=== PATIENT | male | born 1945 | race American Indian/Alaskan Native ===

== ENCOUNTER 2017-09-29 18:24 | Emergency (ER) | payer MEDICARE ==
[2017-09-29] MEDS ORDERED: Propofol 10 mg/ml Inj (20 ML) IV STA (20:30)
[2017-09-29] MEDS ORDERED: Propofol 10 mg/ml Inj (20 ML) ONE (20:41)
[2017-09-29] MEDS ORDERED: Morphine 4 MG/ML VIAL ONE (20:43)
[2017-09-29 20:54] VITALS: TEMP 98
[2017-09-29 21:16] VITALS: RESP 18
--- NOTE | 2017-09-29 21:55 | C.PDOC ---
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 Patient states he tripped and fell while on his way to work. He states he landed onto his right shoulder and "twisted the left knee." Patient denies LOC, numbness/weakness, or any other injuries at this time. ( Maria Dolores Florian) <Alejandro Aguirre E - Last Filed: 09/29/17 23:59> History Per: Patient History/Exam Limitations: no limitations Onset/Duration Of Symptoms: Hrs (1) Current Symptoms Are (Timing): Still Present Quality: "Pain" Additional History Per: Patient <Maria Dolores Florian - Last Filed: 10/02/17 21:15> Time Seen by Provider: 09/29/17 18:57 Chief Complaint (Nursing): Upper Extremity Problem/Injury Past Medical History Reviewed: Historical Data, Nursing Documentation, Vital Signs - Medical History PMH: No Chronic Diseases Surgical History: No Surg Hx Family History: States: Unknown Family Hx - Social History Hx Alcohol Use: No Hx Substance Use: No - Immunization History Hx Tetanus Toxoid Vaccination: No Hx Influenza Vaccination: No Hx Pneumococcal Vaccination: No <Maria Dolores Florian - Last Filed: 10/02/17 21:15> Vital Signs: Last Vital Signs Temp 98 F 09/29/17 21:00 Pulse 75 09/29/17 22:28 Resp 18 09/29/17 22:28 BP 124/71 09/29/17 22:28 Pulse Ox 98 09/29/17 22:28 Review Of Systems Musculoskeletal: Positive for: Shoulder Pain (right), Other (twisted left knee ) Neurological: Negative for: Weakness, Numbness, Other (LOC) <Maria Dolores Florian - Last Filed: 10/02/17 21:15> Physical Exam - Physical Exam Appears: Non-toxic, No Acute Distress Skin: Normal Color, Warm, Dry Head: Atraumatic, Normacephalic Eye(s): bilateral: Normal Inspection Oral Mucosa: Moist Neck: Supple Chest: Symmetrical, No Deformity, No Tenderness Cardiovascular: Rhythm Regular, No Murmur Respiratory: Normal Breath Sounds, No Rales, No Rhonchi, No Wheezing Extremity: Normal ROM (left knee ), Tenderness (right shoulder ), Capillary Refill (less than 2 seconds ), Deformity (right shoulder ), No Swelling, Other ( mild tenderness to left knee) Neurological/Psych: Oriented x3, Normal Speech, Normal Cognition <Maria Dolores Florian - Last Filed: 10/02/17 21:15> ED Course And Treatment O2 Sat by Pulse Oximetry: 99 (on RA) Pulse Ox Interpretation: Normal <Maria Dolores Florian - Last Filed: 10/02/17 21:15> Medical Decision Making <Alejandro Aguirre - Last Filed: 09/29/17 23:59> <Maria Dolores Florian - Last Filed: 10/02/17 21:15> Medical Decision Making: Patient signed out to me at 20:15 from FT for dislocated right shoulder. Patient states she fell down stairs. elderly black male with obvious right deltoid step off deformity, right arm is neurovascular intact. X-Ray reviewed with dislocation but no fracture seen. Consent and anesthesia received, traction relocation. Post reduction films shows good relocation and no fracture. (Alejandro Aguirre) Progress: Right shoulder XR, Left knee XR ordered and reviewed. Tylenol PO given. (Maria Dolores Florian) Disposition <Alejandro Aguirre - Last Filed: 09/29/17 23:59> - Disposition Disposition Time: 22:00 <Maria Dolores Florian - Last Filed: 10/02/17 21:15> - Disposition Referrals: [facility] [Outside] Jensen Orellana III, MD [Staff Provider] - FAMILY PROVIDER,NO [Primary Care Provider] - Disposition: HOME/ ROUTINE Condition: GOOD Additional Instructions: Follow up with the medical doctor within 1-2 days. return if worsened. 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 - Scribe Statement The provider has reviewed the documentation as recorded by the Scribe (Brie Nava) <Maria Dolores Florian - Last Filed: 10/02/17 21:15> - Scribe Statement All medical record entries made by the Scribe were at my direction and personally dictated by me. I have reviewed the chart and agree that the record accurately reflects my personal performance of the history, physical exam, medical decision making, and the department course for this patient. I have also personally directed, reviewed, and agree with the discharge instructions and disposition. (Maria Dolores Florian) Proc Sedation INTRA-PROCEDURE <Alejandro Aguirre - Last Filed: 09/29/17 23:59> <Maria Dolores Florian - Last Filed: 10/02/17 21:15> - Medications Medications Given: Discontinued Medications Acetaminophen (Tylenol 325mg Tab) 650 mg PO STAT STA Stop: 09/29/17 19:11 Last Admin: 09/29/17 19:13 Dose: 650 mg MAR Pain/Vitals Document 09/29/17 19:13 EM (Rec: 09/29/17 19:14 EM [id number]) Pain Reassessment Is This A Pain ReAssessment? No Sleep Is patient sleeping during reassessment? No Presence of Pain Presence of Pain Yes Location Pain Location Body Site Shoulder Description Intermittent Intensity 8 Scale Used Numeric Variations/Patterns restlessness Site Observation moaning Duration (Minutes) 45 Pain Behavior Moaning Alleviating Factors Medication Ketorolac Tromethamine (Toradol) 30 mg IVP STAT STA Stop: 09/29/17 20:44 Last Admin: 09/29/17 20:54 Dose: 30 mg MAR Pain Assessment Document 09/29/17 20:54 SMP (Rec: 09/29/17 20:54 SMP [id number]) Pain Reassessment Is this a pain reassessment? Yes Sleep Is patient sleeping during reassessment? No Presence of Pain Presence of Pain Yes Pain Scale Used Pain Scale Used Numeric Description Description Constant IVP Administration Document 09/29/17 20:54 SMP (Rec: 09/29/17 20:54 SMP [id number]) Charges for Administration # of IVP Administrations 1 Morphine Sulfate (Morphine) 4 mg IVP STAT STA Stop: 09/29/17 20:44 Last Admin: 09/29/17 20:54 Dose: 4 mg MAR Pain Assessment Document 09/29/17 20:54 SMP (Rec: 09/29/17 20:54 SMP [id number]) Pain Reassessment Is this a pain reassessment? Yes Sleep Is patient sleeping during reassessment? No Presence of Pain Presence of Pain Yes Pain Scale Used Pain Scale Used Numeric Description Description Constant Intensity of Pain at present 10 IVP Administration Document 09/29/17 20:54 SMP (Rec: 09/29/17 20:54 SMP [id number]) Charges for Administration # of IVP Administrations 1 Propofol (Diprivan) 100 mg IV ONCE STA Stop: 09/29/17 20:31 Last Admin: 09/29/17 21:04 Dose: 100 mg eMAR Start Stop Document 09/29/17 21:04 SMP (Rec: 09/29/17 21:[id number]) Intravenous Solution Start Date 09/29/17 Start Time 21:04 Proc Sedation POST-PROCEDURE - Discharge Checklist Written MD order for Discharge: Yes Vital signs assessed and are consistent with pre-procedure reading: Yes Voided (if applicable): Yes Minimal nausea, vomiting, and dizziness: Yes Ambulates to pre-procedural level: Yes Alert and oriented to pre-procedural level: Yes Responsible adult escort present: Yes DISCHARGE INSTRUCTIONS GIVEN:: Yes <Alejandro Aguirre - Last Filed: 09/29/17 23:59> Proc Sedation PRE-PROCEDURE - Pre-Anesthesia Past Medical History: Medications Reviewed, Allergies Reviewed, Record Review Previous Surgies: Reviewed Family History/Social History: Reviewed - Physical Exam/Review of Systems Vital Signs Reviewed: Yes Cardiovascular: Regular Rate and Rhythm, Normal S1, S2. denies: Murmurs Respiratory/Chest: Clear to Auscultation, Good Air Exchange. denies: Respiratory Distress, Accessory Muscle Use Neurological: GCS=15, CN II-XII Intact, Speech Normal Abdomen: Normal Bowel Sounds. denies: Tenderness, Distention, Peritoneal Signs Mental Status: Alert and Oriented X 3 - Pre-Procedure Airway Assessment History of difficult intubation or surgical airway (i.e trach):: No Inability to extend neck:: No Mouth opening less than two finger breadth:: No Diagnosis of sleep apnea:: No Less than three finger breadth to hyoid bone:: No ASA Criteria: 1 - Healthy, normal. 2 - Mild systemic disease (No functional limitations, mildline obesity, DM withot complications, Hypertention). 3 - Severe systemic disease (Some functional limitation, stable angina, morbid obesity, controlled COPD/Asthma/CHF). 4 - Sever systemic disease constant threat to life (Unstable angina, active symptoms of COPD/Asthma, CHF/ Hypertension. 5 - Moribund ASA Clarification: ASA I <Alejandro Aguirre E - Last Filed: 09/29/17 23:59> <Maria Dolores Florian - Last Filed: 10/02/17 21:15> - Pre-Anesthesia Chief Complaint: Upper Extremity Problem/Injury
--- NOTE | 2017-09-29 22:12 | C.PDOC ---
Time Seen by Provider: 09/29/17 18:57 Chief Complaint (Nursing): Upper Extremity Problem/Injury Past Medical History Vital Signs: Last Vital Signs Temp 98 F 09/29/17 20:53 Pulse 68 09/29/17 20:53 Resp 18 09/29/17 20:53 BP 175/88 H 09/29/17 20:53 Pulse Ox 99 09/29/17 20:53 - Social History Hx Alcohol Use: No Hx Substance Use: No - Immunization History Hx Tetanus Toxoid Vaccination: No Hx Influenza Vaccination: No Hx Pneumococcal Vaccination: No ED Course And Treatment O2 Sat by Pulse Oximetry: 99 Disposition - Disposition Referrals: FAMILY PROVIDER,NO [Primary Care Provider] -
[2017-09-29 22:31] VITALS: BP 124/71; PULSE 75
--- NOTE | 2017-09-30 07:47 | RAD ---
Right shoulder three views History: Fall. Injury. Comparison: None available. Findings: Anterior inferior dislocation of the right proximal humerus in relationship to the bony glenoid. Question patchy sclerosis at the level of the physis of the proximal humerus, nonspecific. Moderate degenerative changes of the right acromioclavicular joint space with joint space narrowing and bony hypertrophy. Impression: Anterior inferior dislocation of the right proximal humerus in relationship to the bony glenoid. Question patchy sclerosis at the level of the physis of the proximal humerus, nonspecific. Moderate degenerative changes of the right acromioclavicular joint space with joint space narrowing and bony hypertrophy.
--- NOTE | 2017-09-30 07:55 | RAD ---
Right shoulder single frontal view History: Postreduction. Comparison: 09/29/2017 Findings: Status post relocation/reduction of the right proximal humerus in relationship to the bony glenoid. Persistent nonspecific sclerosis at the level of the physis of the proximal humerus. Clinical correlation. Moderate degenerative changes of the right acromioclavicular joint space. Impression: Status post relocation/reduction of the right proximal humerus in relationship to the bony glenoid. Persistent nonspecific sclerosis at the level of the physis of the proximal humerus. Clinical correlation. Moderate degenerative changes of the right acromioclavicular joint space. If pain persists, consider MRI.
--- NOTE | 2017-09-30 08:01 | RAD ---
Left knee three views History: Fall. Injury. Comparison: None available. Findings: Moderate medial and patellofemoral compartment joint space narrowing with subchondral sclerosis and osteophytosis. Punctate ossific/calcific density adjacent to the lateral femoral condyle. Spurring of the tibial spines. Small suprapatellar joint effusions. Productive change at the anterior tibial tubercle. Vascular calcifications noted posteriorly. Impression: Moderate medial and patellofemoral compartment joint space narrowing with subchondral sclerosis and osteophytosis. Punctate ossific/calcific density adjacent to the lateral femoral condyle. Spurring of the tibial spines. Small suprapatellar joint effusion. Productive change at the anterior tibial tubercle. Vascular calcifications noted posteriorly. If pain persists, consider correlation with MRI.
[2017-10-02 21:15] VITALS: O2SAT 99
== END 2017-09-29 22:31 | disposition home or self-care (01) ==
LOC: C.ER 18:24
DX: S43.084A Other dislocation of right shoulder joint, initial encounter (principal); S80.02XA Contusion of left knee, initial encounter; W10.9XXA Fall (on) (from) unspecified stairs and steps, initial encounter; Y92.89 Other specified places as the place of occurrence of the external cause
CPT/HCPCS: 23655; 73020; 73030; 73562; 96374; 96375; 99285; J1885; J2270; J2704